=== PATIENT | male | born 1990 | race Two or more races ===

== ENCOUNTER → 2021-07-09 | Emergency (ER) | payer OTHER ==
[~2021-07-09] VITALS: Ht 167.6 cm; Wt 77.1 kg
[~2021-07-09] MED LIST: DOLOGEN CAPLET1 EACH PO; MEDROLPACK PO; TUSNEL LIQUID178 ML PO; TYLENOL; ZITHROMAX500 MG PO
== END | disposition home or self-care (01) ==
LOC: ER 18:16
DX: B34.9 Viral infection, unspecified (principal); U07.1 COVID-19

== ENCOUNTER 2021-07-10 11:18 | Outpatient (CLI) | payer OTHER | END 2021-07-10 12:00 | disposition home or self-care (01) | LOC: ASH CLINIC 11:18 | PROVIDERS: ATTEND General Practice | DX: Z23 Encounter for immunization (principal); U07.1 COVID-19 ==